=== PATIENT | female | born 1985 | race African-American/Black ===

== ENCOUNTER 2016-10-10 18:37 | Emergency (ER) | payer SELFPAY ==
[2016-10-10] MEDS ORDERED: Sodium Chloride 0.9% 1,000 ML IV ONE (19:09)
--- NOTE | 2016-10-10 19:17 | ED Physician Chart ---
Chief Complaint/HPI - Patient Information Date Seen:: 10/10/16 Time Seen:: 19:00 Chief Complaint:: shortness of breath History of Present Illness:: onset yesterday of shortness of breath, abdominal, hip, back and bilateral knee pain. Thinks she had a PE yesterday and developed sickle cell crisis. About 45 [address] door struck right parietal scalp; no LOC but felt dizzy and vomited twice. 08/04/[address] [facility] [place]: two stints placed; 09/05/16 had CVA with right sided paralysis, given TPA, paralysis improved but still has right leg weakness. Allergic IV contrast so cannot have CTA chest. Historian:: Patient, EMS Review:: Nurse's Note Reviewed, Old Chart Reviewed Review of Systems - Review of Systems General/Constitutional: No fever, No chills Skin: No skin lesions Head: Headache Eyes: No loss of vision ENT: No earache Neck: No neck pain, No swelling Cardio Vascular: No chest pain, No palpitations Pulmonary: SOB GI: Nausea, Vomiting G/U: No dysuria Musculoskeletal: Bone or joint pain Endocrine: No polyuria, No polydipsia Psychiatric: No prior psych history Hematopoietic: No bruising Allergic/Immuno: No urticaria Neurological: No syncope, No focal symptoms Past Medical History - Past Medical History Past Medical History: Other (Lupus; anti-phopholipid antibody; s/p several DVTs and PEs; sickle cell SS) Family History: Other (sickle cell disese) Social History: Non Smoker, No Alcohol Surgical History: Cholecystectomy Psychiatricy History: None Medication: Reviewed Family Medical History - Family Member Mother History Unknown: Yes Physical Exam - Physical Examination General/Constitutional: Well-developed, well-nourished, Alert, No distress Other Head comments:: right parietal tenderness Eyes: Lids, conjuctiva normal, PERRL Skin: Nl inspection, No rash, No skin lesions, No ecchymosis ENMT: External ears, nose nl, Nasal exam nl, Oropharynx nl Other ENMT comments:: 4/4 dental plaque Neck: No nuchal rigidity Respiratory: Nl effort/Exclusion, Clear to Auscultation, No Wheeze/Rhonchi/Rales Cardio Vascular: RRR, No murmur, gallop, rubs GI: No organomegaly, No hernia, Normal BS's Other GI comments:: right sided abdominal tenderness : No CVA tenderness Extremities: Normal digits & nails Other Extremities comments:: 1/ pre-tibial pitting edema Neuro/Psych: No focal deficits Misc: Normal back Labs/Radiology/EKG Results - Lab Results Results: Laboratory Results - last 24 hr 10/10/16 10/10/16 21:05 21:05 Urine Source CLEAN C Urine Color YELLOW Urine Clarity CLEAR Urine pH 7.0 Ur Specific [place] 1.010 Urine Protein NEGATIVE Urine Glucose (UA) NEGATIVE Urine Ketones NEGATIVE Urine Blood NEGATIVE Urine Nitrate NEGATIVE Urine Bilirubin NEGATIVE Urine Urobilinogen 0.2 Ur Leukocyte Esterase NEGATIVE Urine RBC NONE SEEN Urine WBC NONE SEEN Ur Epithelial Cells RARE Urine Bacteria OCCASIONAL Urine Test NEGATIVE Comments:: Laboratory Results - last 24 hr 10/10/16 10/10/16 21:05 21:05 Urine Source CLEAN C Urine Color YELLOW Urine Clarity CLEAR Urine pH 7.0 Ur Specific [place] 1.010 Urine Protein NEGATIVE Urine Glucose (UA) NEGATIVE Urine Ketones NEGATIVE Urine Blood NEGATIVE Urine Nitrate NEGATIVE Urine Bilirubin NEGATIVE Urine Urobilinogen 0.2 Ur Leukocyte Esterase NEGATIVE Urine RBC NONE SEEN Urine WBC NONE SEEN Ur Epithelial Cells RARE Urine Bacteria OCCASIONAL Urine Test NEGATIVE Assessment - Assessment General Assessment: since no IV access could be obtained plan was to have a PIC line started in the am so a V:Q scan can be started. At no time in the ED did the patient appear in any distress. ED Septic Shock - . Is Septic Shock (SBP<90, OR Lactate>4 mmol\L) present?: No Reassessment (Disposition) - Reassessment Reassessment Condition:: Unchanged - Diagnosis Diagnosis:: Blunt head trauma, sickle cell disease; history of pulmonary emboli - Patient Disposition Discharge/Transfer:: Against Medical Advice Condition at Disposition:: Stable, Unchanged ED Discharge Plan - Patient Disposition Instructions: Discharge Against Medical Advice
[2016-10-10] MEDS ORDERED: HYDROmorphone 1 mg/mL 1mL Syr IVP STA (20:43)
[2016-10-10 21:22] LABS: URINE BILIRUBIN NEGATIVE (NEGATIVE); URINE BLOOD NEGATIVE (NEGATIVE); URINE COLOR YELLOW; URINE GLUCOSE (UA) NEGATIVE (NEGATIVE); URINE KETONE NEGATIVE (NEGATIVE); URINE PROTEIN NEGATIVE (NEGATIVE); URINE UROBILINOGEN 0.2 E.U./dL (0.2 - 1.0)
[2016-10-10 21:23] LABS: URINE BACTERIA OCCASIONAL /hpf (NONE SEEN); URINE EPITHELIAL CELLS RARE /lpf (FEW); URINE RBC NONE SEEN /hpf (0-5); URINE WBC NONE SEEN /hpf (0-5)
[2016-10-10] MEDS ORDERED: HYDROmorphone 1 mg/mL 1mL Syr ONE (21:49)
[2016-10-11] MEDS ORDERED: HYDROmorphone 1 mg/mL 1mL Syr IVP STA (01:04)
[2016-10-11] MEDS ORDERED: HYDROmorphone 1 mg/mL 1mL Syr ONE (01:13)
--- NOTE | 2016-10-11 09:24 | Diagnostic Imaging Report ---
Head CT without intravenous contrast Indication: Trauma Comparison: None Technique: Axial images were obtained from the vertex to the skull base without IV contrast. Coronal reconstructions were made. Total DLP: [id number], [id number] FINDINGS: Images of the brain obtained without contrast demonstrate no acute hemorrhage. No mass lesions identified. The ventricles and basal cisterns are patent. The cop[place]-white matter differentiation is preserved. There is no mass effect or midline shift. No skull fractures identified. No soft tissue swelling. The paranasal sinuses are clear. IMPRESSION: No acute intracranial abnormality.
== END 2016-10-11 03:40 | disposition left against medical advice (07) ==
LOC: ER 18:37
DX: S09.8XXA Other specified injuries of head, initial encounter (principal); E87.1 Hypo-osmolality and hyponatremia; Z86.711 Personal history of pulmonary embolism; Z90.49 Acquired absence of other specified parts of digestive tract; X58.XXXA Exposure to other specified factors, initial encounter; Y93.89 Activity, other specified; Y92.89 Other specified places as the place of occurrence of the external cause; Y99.8 Other external cause status
CPT/HCPCS: 70450-TC; 81001-TC; 81025-TC; 96374; 96375; 96376; J1170; J1200; J7030